=== PATIENT | female | born 1930 | race Caucasian/White ===

== ENCOUNTER 2016-06-23 14:13 | Outpatient (CLI) | payer MEDICARE ==
[~2016-06-23 14:13] MED LIST: ACET325T53 PO; CALCIUM PO; DILT30TA35; DILT60TA35 PO; FURO40TA5 PO; MAGN400O6 PO; METO50TA3 PO; OXYC1TAB8 PO; PRED10TA23 PO; PRED20TA PO; PRED5TAB48 PO; Rivaroxaban PO; THYR30TA2 PO
[2016-06-23 15:05] LABS: CALCIUM, SERUM 8.7 mg/dL (8.5-10.1); CREATININE 1.3 mg/dL (0.6-1.3); POTASSIUM 4.4 mmol/L (3.5-5.1)
== END 2016-06-23 23:59 | disposition home or self-care (01) ==
LOC: LAB 14:13
PROVIDERS: ATTEND Surgery Vascular Surgery
DX: I48.91 Unspecified atrial fibrillation (principal)
CPT/HCPCS: 36415; 80048-TC

== ENCOUNTER 2016-11-14 23:45 | Inpatient (IN) | payer MEDICARE ==
[~2016-11-14] VITALS: Ht 165.1 cm; Wt 83.9 kg
[2016-11-15] VITALS (23 sets, daily range): BP systolic 117–194; BP diastolic 60–125
--- NOTE | 2016-11-15 | NUR ---
86 yo female bb ra from home. pt is alert x 3, c/o bilat lower extremity numbness x 30 min detective captain. pt assisted to er bed, skin warm and dry, rr even and unlabored. positive pedal pulses bilat. awaiting orders from provider, will continue to monitor
--- NOTE | 2016-11-15 00:12 | NUR ---
20g left fa iv started, blood sample obtianed and sent to lab
[2016-11-15 00:20] LABS: BASOPHILS % (AUTO) 0.6 % (0.0-2.0); EOSINOPHILS # (AUTO) 0.3 /CMM (0.0-0.7); HEMATOCRIT 41 % (33-45); HEMOGLOBIN 13.5 g/dL (11.5-14.8); LYMPHOCYTES # (AUTO) 1.1 /CMM (0.8-4.8); LYMPHOCYTES % (AUTO) 14.8 % (20.0-44.0); MEAN CORPUSCULAR HEMOGLOBIN 31 PG (26.0-33.0); MEAN CORPUSCULAR HGB CONC 33 g/dl (31.0-36.0); MEAN CORPUSCULAR VOLUME 92 fL (82-100); MONOCYTES # (AUTO) 0.6 /CMM (0.1-1.30); MONOCYTES % (AUTO) 7.5 % (2.0-12.0); NEUTROPHILS # (AUTO) 5.6 /CMM (1.8-8.9); NEUTROPHILS % (AUTO) 73.1 % (43.0-81.0); PLATELET COUNT (AUTO) 180 /CMM (150-450); WHITE BLOOD COUNT (AUTO) 7.7 K/uL (4.3-11.0)
[2016-11-15 00:33] LABS: CALCIUM, SERUM 9.4 mg/dL (8.5-10.1); CARBON DIOXIDE 27 mmol/L (21-32); CHLORIDE 104 mmol/L (98-107); CREATININE 1.1 mg/dL (0.6-1.3); GLUCOSE 99 mg/dL (74-106); INR 0.97 (0.87-1.13); POTASSIUM 4.3 mmol/L (3.5-5.1); PROTHROMBIN TIME 10.4 SECS (9.5-12.7); SODIUM SERUM 140 mmol/L (136-145); UREA NITROGEN, BLOOD 29 mg/dL (7-18)
[2016-11-15 00:39] LABS: TROPONIN I < 0.017 ng/mL (0.00-0.056)
[2016-11-15 00:44] LABS: ALANINE AMINOTRANSFERASE 18 U/L (12-78); ALBUMIN 4.1 g/dL (3.4-5.0); ALKALINE PHOSPHATASE 55 U/L (46-116); ASPARTATE AMINOTRANSFERASE 12 U/L (15-37); B-TYPE NATRIURETIC PEPTIDE 656 PG/ML (0-125); BILIRUBIN,DIRECT 0.2 mg/dL (0.0-0.2); BILIRUBIN,TOTAL 1.6 mg/dL (0.2-1.0); TOTAL PROTEIN, SERUM 7.4 g/dL (6.4-8.2)
[2016-11-15] MEDS ORDERED: THYR15TA PO (00:58)
[2016-11-15] MEDS ORDERED: [UNRECOGNIZED DRUG - OTHER] PO (00:58)
[2016-11-15] MEDS ORDERED: CARV25TA PO (00:58)
[2016-11-15] MEDS ORDERED: DILT120C2 PO (00:58)
--- NOTE | 2016-11-15 02:22 | NUR ---
echocardiography radiology technologist at bed side for arterial and venous douplex of the lower legs
[2016-11-15 02:38] LABS: APPEARANCE,URINE SL CLOUDY (CLEAR); BILIRUBIN,URINE NEGATIVE (NEGATIVE); BLOOD, URINE TRACE Ery/uL (NEGATIVE); COLOR,URINE YELLOW (YELLOW); KETONES,URINE TRACE (NEGATIVE); LEUKOCYTE ESTERASE ,URINE 2+ (NEGATIVE); NITRITE, URINE POSITIVE (NEGATIVE); PROTEIN,URINE 1+ mg/dl (NEGATIVE); UGLUCOSE NEGATIVE (NEGATIVE); UROBILINOGEN,URINE 0.2 EU/dL (0.2)
[2016-11-15 02:42] LABS: BACTERIA,URINE Few /HPF (None Seen); SQUAMOUS EPITHELIAL CELL,UR Few /HPF (None Seen)
--- NOTE | 2016-11-15 03:02 | NUR ---
pt resting in er bed, nad noted awaiting orders from provider
--- NOTE | 2016-11-15 03:33 | NUR ---
noticed left sided facial droop, and slurred speech. MD José notified
--- NOTE | 2016-11-15 03:34 | NUR ---
CODE STROKE CALLED. SPOKE TO
--- NOTE | 2016-11-15 03:34 | NUR ---
started heparin drip as ordered.
--- NOTE | 2016-11-15 03:35 | NUR ---
transported pt to ct via rney with radiology team
--- NOTE | 2016-11-15 03:42 | NUR ---
TELESTROKE DR. STOVALL FROM [facility] TALKING TO DR. PALMER.
--- NOTE | 2016-11-15 04:25 | NUR ---
CALLED [facility] AND SPOKE TO SG ABOUT PT'S RETURN FROM CT SCAN
--- NOTE | 2016-11-15 04:28 | NUR ---
[facility]
--- NOTE | 2016-11-15 04:33 | NUR ---
MD Ankit Fuentes is speaking with patient via tele stroke computer
--- NOTE | 2016-11-15 04:37 | NUR ---
Per MD Ankit Fuentes, pt is not a canidate for TPA, will continue to monitor
--- NOTE | 2016-11-15 05:16 | NUR ---
Stas Michel MD, Vascular Surgery is at bed side for eval
--- NOTE | 2016-11-15 05:35 | NUR ---
pt transported to ICU bed via gurney by emt and RN
--- NOTE | 2016-11-15 07:00 | NUR ---
icu initial note received pt in bed, awake, a/o x 3, able to make needs known, able to follow commands, pt is on bedside monitor showing sb 60's, bmp, no c/o of chest pain or discomfort at this time, pt is currently npo at this time for upcoming procedure, pt has r hand #22g,sl, l hand #20g, running d51/2 ns @ 70ml/hr, lac #18g, running heparin @ 1500 units/hr, c/d/i/patent, flushing well, no s/s of infection/ infiltration noted at this time, pt is noted with no pedal pulse on r foot, cold to touch, pt complains of pain when touching or moving leg, all safety measures in place at all times, call light within easy reach, will monitor pt closely for changes
[2016-11-15 08:28] LABS: MAGNESIUM 2.6 mg/dL (1.8-2.4); PHOSPHORUS 3.8 mg/dL (2.5-4.9)
[2016-11-15 08:41] LABS: THYROID STIMULATING HORMONE 82.634 uIU/mL (0.358-3.74)
--- NOTE | 2016-11-15 09:52 | NUR ---
icu note pt signed blood consent and procedure consent for r leg thrombectomy, possible bypass, fasciotomy, possible angiogram, all questions and concerns answered, pt is currently npo
--- NOTE | 2016-11-15 09:53 | NUR ---
icu note dr. perea, anesthesiologist, at bedside, explained risks and benefits of anesthesia, all questions and concerns answered, pt signed consent for anesthesia.
--- NOTE | 2016-11-15 11:50 | NUR ---
icu note heparin drip on hold, pt 160 seconds, , aware, all new orders ack
--- NOTE | 2016-11-15 11:55 | NUR ---
icu note lab called pt is 160, informed 's office, unable to reach him d/t major operation, paged
--- NOTE | 2016-11-15 14:00 | NUR ---
icu note family at bedside, updated, all questions and concerns answered
--- NOTE | 2016-11-15 15:00 | NUR ---
icu note dr. holman called, surgery is cancelled, procedure is rescheduled for tomorrow 11/17/16
--- NOTE | 2016-11-15 15:00 | NUR ---
ICU NOTE PER. DR. VELIZ, RESTART HEPARIN AFTER 1600 APTT LEVEL, START AT 1300 UNITS/HR, THEN CHECK APTT Q6H, ADJUST PER PROTOCOL
--- NOTE | 2016-11-15 16:30 | NUR ---
icu note aptt 31, per dr. holman restarted heparin @1300 units/hr, recheck aptt in 6hrs, follow heparin protocol and
--- NOTE | 2016-11-15 18:20 | NUR ---
icu note pm care given, pt kept clean and dry, all orders carried out. family updated and at bedside
--- NOTE | 2016-11-15 19:30 | NUR ---
PLASTICS SPREADING MACHINE OPERATOR INITIAL NOTE RECEIVED REPORT FROM WILFRED MARTINEZ. PT IN BED.FAMILY AT BEDSIDE. PT IS A/A/O X3. LUNG SOUNDS DIMINISHED. BOWEL SOUNDS PRESENT. INCONTINENT WITH DIAPER INTACT. PT ABLE TO MOVE ALL EXTREMITIES. RIGHT LEG COOL, X MARKED ON FOOT FOR PULSE SOUNDS. PT ABLE TO LEGS AND FEET. PT IS EXPERIENCING PAIN IN LOWER EXTREMITIES. BP ELEVATED. WILL REVIEW PAIN MEDICATIONS. BED IN LOW LOCKED POSITION. CALL LIGHT WITHIN REACH. WILL CONTINUE TO MONITOR.
[2016-11-16] VITALS (34 sets, daily range): BP systolic 104–182; BP diastolic 56–117
--- NOTE | 2016-11-16 00:07 | NUR ---
STRUCTURAL STEEL EQUIPMENT ERECTOR CRITICAL VALUE 85. HEPARIN PROTOCOL FOLLOWED. DECREASED HEPARIN BY 2 UNITS. HEPARIN DOSE 1150 UNITS
[2016-11-16 04:51] LABS: BASOPHILS % (AUTO) 0.3 % (0.0-2.0); EOSINOPHILS # (AUTO) 0.1 /CMM (0.0-0.7); EOSINOPHILS % (AUTO) 1.2 % (0.0-6.0); HEMATOCRIT 31 % (33-45); HEMOGLOBIN 9.6 g/dL (11.5-14.8); LYMPHOCYTES # (AUTO) 0.8 /CMM (0.8-4.8); LYMPHOCYTES % (AUTO) 10.3 % (20.0-44.0); MEAN CORPUSCULAR HEMOGLOBIN 31 PG (26.0-33.0); MEAN CORPUSCULAR HGB CONC 31 g/dl (31.0-36.0); MEAN CORPUSCULAR VOLUME 101 fL (82-100); MONOCYTES # (AUTO) 0.7 /CMM (0.1-1.30); MONOCYTES % (AUTO) 9.1 % (2.0-12.0); NEUTROPHILS # (AUTO) 5.8 /CMM (1.8-8.9); NEUTROPHILS % (AUTO) 79.1 % (43.0-81.0); PLATELET COUNT (AUTO) 118 /CMM (150-450); RDW COEFFICIENT OF VARIATION 17.8 (11.5-15.0); RED BLOOD CELL COUNT(AUTO) 3.06 MIL/uL (4.0-5.2); WHITE BLOOD COUNT (AUTO) 7.4 K/uL (4.3-11.0)
--- NOTE | 2016-11-16 05:30 | NUR ---
SALES DRIVER LAB CALLED WITH CRITICAL VALUE. PTT 106. WILL FOLLOW PROTOCOL. HOLD HEPARIN FOR ONE HOUR AND RESTART AT 0630 BUT WILL DECREASE HEPARIN BY 3 UNITS. WILL CONTINUE TO MONITOR.
[2016-11-16 06:16] LABS: CALCIUM, SERUM 8.4 mg/dL (8.5-10.1); CARBON DIOXIDE 30 mmol/L (21-32); CHLORIDE 106 mmol/L (98-107); CREATININE 1.2 mg/dL (0.6-1.3); GLUCOSE 107 mg/dL (74-106); POTASSIUM 4.1 mmol/L (3.5-5.1); SODIUM SERUM 141 mmol/L (136-145); UREA NITROGEN, BLOOD 21 mg/dL (7-18)
[2016-11-16 06:23] LABS: ALANINE AMINOTRANSFERASE 17 U/L (12-78); ALBUMIN 3.4 g/dL (3.4-5.0); ALKALINE PHOSPHATASE 50 U/L (46-116); ASPARTATE AMINOTRANSFERASE 11 U/L (15-37); BILIRUBIN,TOTAL 1.1 mg/dL (0.2-1.0); MAGNESIUM 2.4 mg/dL (1.8-2.4); PHOSPHORUS 3.9 mg/dL (2.5-4.9); TOTAL PROTEIN, SERUM 6.6 g/dL (6.4-8.2)
--- NOTE | 2016-11-16 06:30 | NUR ---
PORCELAIN SLUSHER RCD PT FROM ER AT 0540; RCD REPORT AT 0630 W/ADMITTING ORDERS. DX RIGHT COMMON ILIAC ARTERY OCCLUSION. PT SEEN BY DR VELIZ SCHEDULED FOR SURGERY AT 1600 TODAY. PT IS A/O x4; REQUESTING PAIN MEDICATION FOR BL FEET PAIN 09/[address] MEREDITH GIVE MORPHINE 2 MG IV NOW; UNABLE TO OBTAIN BROUGHT BY ER NURSE. PT WITH HEPARIN DRIP AT 1500 UNITS/HR. PER ER REPORT PT WAS A CODE STROKE HOWEVER PT DID NOT HAVE A STROKE RATHER A TIA. PT REQUESTING FOOD SHE HAS NOT EATEN IN 24 HRS EXPLAINED TO PT SHE IS NPO FOR SURGERY. CONTINUE TO MONITOR.
[2016-11-16 06:31] LABS: CHOLESTEROL 206 mg/dL (<200); TRIGLYCERIDES 78 mg/dL (30-150)
[2016-11-16 06:32] LABS: HDL CHOLESTEROL 50 mg/dL (40-60); LDL 142 mg/dL (0-99); THYROID STIMULATING HORMONE 22.663 uIU/mL (0.358-3.74)
--- NOTE | 2016-11-16 07:00 | NUR ---
CONSTRUCTION PERSON END NOTE REPORT TO BE ENDORSED TO ADONAY MARTINEZ FOR PARAG. PT IN BED, ASLEEP. STABLE AT THIS TIME. SCHEDULED FOR SURGERY AT [address] VELIZ.
--- NOTE | 2016-11-16 07:05 | NUR ---
MOVE COORDINATOR- INITIAL NOTE RECEIVED PT A/O X4, RESTING COMFORTABLY IN BED. ON 2L NC, RESPIRATIONS EVEN AND UNLABORED, NO SOB OR DISTRESS PRESENT. BEDSIDE MONITOR REVEALS SINUS JOSE MARIA, HR= 55. THREE IVS PRESENT: 1) LEFT HAND 20G, 2) LAC 18G, AND 3) RIGHT HAND 22G. PT CURRENTLY RUNNING HEPARIN GTT AT 900 UNITS/HR AND D5 1/2NS @ 70 ML/HR. NEXT PTT SCHEDULED AT 1230. SAFETY MEASURES TAKEN: BED LOCKED AND IN LOW POSITION, SIDE RAILS UP X2, BED ALARM ON AND CALL LIGHT WITHIN REACH, WILL CONTINUE TO MONITOR.
--- NOTE | 2016-11-16 10:00 | NUR ---
SIGN DESIGNER- PT OFF TO SURGERY FOR RIGHT COMMON ILIAC ARTERY THROMBECTOMY. FAMILY AT BEDSIDE.
--- NOTE | 2016-11-16 10:30 | NUR ---
STRIPPING SHOVEL OILER- DR. WATSON AT BEDSIDE. INFORMED MD PT LEFT FOR SURGERY AT 10 AM. ASKED MD IF HE WOULD LIKE TO ORDER ANY ASPIRIN OR LIPID MEDICATIONS FOR PT SINCE SHE WAS ADMITTED FOR TIA. PER MD, HE WILL SEE EVALUATE PT AFTER SURGERY AND MAKE A DECISION.
--- NOTE | 2016-11-16 14:15 | NUR ---
RURAL CARRIER ASSOCIATE- PT RETURNED FROM SURGERY. PLACED ON 3L NC, SATURATING AT 95%. PT ABLE TO WIGGLES TOES AND MOVE FEET. PT PRESENTS WITH NASCIMENTO CATHETER AND DAVEY DRAIN ON RIGHT GROIN. DENIES PAIN OR DISCOMFORT. WILL CONTINUE TO MONITOR.
--- NOTE | 2016-11-16 16:00 | NUR ---
SENIOR TERADATA DEVELOPER- DR. WATSON AT BEDSIDE EVALUATING PT. INFORMED PT HE WILL TALK TO DR. VELIZ IN REGARDS TO RE-STARTING PT ON ANTICOAGULANTS. WILL CONTINUE TO MONITOR.
--- NOTE | 2016-11-16 16:30 | NUR ---
HEAVY EQUIPMENT PLUMBING SUPERVISOR- SPOKE WITH DR. VELIZ. CONFIRMED WHETHER TO CONTINUE HEPARIN GTT. PER MD, YES, PT STILL NEEDS TO BE ON HEPARIN GTT. PTT RESULT IS 55. HEPARIN GTT WILL CONTINUE AT 900 UNITS/HOUR. ORDER PLACED FOR NEXT PTT TOMORROW AM. WILL CONTINUE TO MONITOR.
--- NOTE | 2016-11-16 19:30 | NUR ---
ELECTRONIC ENGINEERING DRAFTSPERSON INITIAL NOTE RECEIVED REPORT FROM ADONAY MARTINEZ. PT IN BED A/A/O X4. LUNG SOUNDS CLEAR. BOWEL SOUNDS PRESENT. DAVEY DRAIN INTACT ON RIGHT GROIN AREA, DRESSING DRY AND INTACT. NASCIMENTO INTACT AND DRAINING URINE. IV PATENT AND INTACT. BED IN LOW LOCKED POSITION. CALL LIGHT WITHIN REACH. WILL CONTINUE TO MONITOR.
--- NOTE | 2016-11-16 19:30 | NUR ---
INTERIOR DESIGN CONSULTANT INITIAL NOTE RECEIVED REPORT FROM WILFRED MARTINEZ. PT IN BED.FAMILY AT BEDSIDE. PT IS A/A/O X3. LUNG SOUNDS DIMINISHED. BOWEL SOUNDS PRESENT. INCONTINENT WITH DIAPER INTACT. PT ABLE TO MOVE ALL EXTREMITIES. RIGHT LEG COOL, X MARKED ON FOOT FOR PULSE SOUNDS. PT ABLE TO LEGS AND FEET. PT IS EXPERIENCING PAIN IN LOWER EXTREMITIES. BP ELEVATED. WILL REVIEW PAIN MEDICATIONS. BED IN LOW LOCKED POSITION. CALL LIGHT WITHIN REACH. WILL CONTINUE TO MONITOR. Addendum: 11/17/16 at 0344 by JAGDEEP PEACOCK RN NOTE FOR 11/15/16 LATE ENTRY
[2016-11-17] VITALS (31 sets, daily range): BP systolic 112–171; BP diastolic 46–114
--- NOTE | 2016-11-17 | NUR ---
PRODUCT MANAGER E COMMERCE PT IN BED RESTING COMFORTABLY. NO DISTRESS NOTED. BP STABLE. REPOSITIONED FOR COMFORT. WAR, BLANKET PROVIDED. WILL CONTINUE TO MONITOR.
--- NOTE | 2016-11-17 03:26 | NUR ---
AIR BOX TESTER PT BLOOD PRESSURE HIGH 169/95, VASOTEC GIVEN. WILL CONTINUE TO MONITOR.
[2016-11-17 04:59] LABS: BASOPHILS % (AUTO) 0.1 % (0.0-2.0); EOSINOPHILS % (AUTO) 0.1 % (0.0-6.0); HEMATOCRIT 38 % (33-45); HEMOGLOBIN 12.7 g/dL (11.5-14.8); LYMPHOCYTES # (AUTO) 0.9 /CMM (0.8-4.8); LYMPHOCYTES % (AUTO) 7.9 % (20.0-44.0); MEAN CORPUSCULAR HEMOGLOBIN 31 PG (26.0-33.0); MEAN CORPUSCULAR HGB CONC 34 g/dl (31.0-36.0); MEAN CORPUSCULAR VOLUME 93 fL (82-100); MONOCYTES # (AUTO) 0.9 /CMM (0.1-1.30); MONOCYTES % (AUTO) 7.9 % (2.0-12.0); NEUTROPHILS # (AUTO) 9.9 /CMM (1.8-8.9); PLATELET COUNT (AUTO) 175 /CMM (150-450); RDW COEFFICIENT OF VARIATION 16.2 (11.5-15.0); RED BLOOD CELL COUNT(AUTO) 4.07 MIL/uL (4.0-5.2); WHITE BLOOD COUNT (AUTO) 11.8 K/uL (4.3-11.0)
[2016-11-17 05:13] LABS: ALANINE AMINOTRANSFERASE 14 U/L (12-78); ALBUMIN 3.1 g/dL (3.4-5.0); ALKALINE PHOSPHATASE 48 U/L (46-116); ASPARTATE AMINOTRANSFERASE 11 U/L (15-37); BILIRUBIN,TOTAL 0.7 mg/dL (0.2-1.0); CALCIUM, SERUM 8.3 mg/dL (8.5-10.1); CARBON DIOXIDE 28 mmol/L (21-32); CHLORIDE 107 mmol/L (98-107); CREATININE 1.2 mg/dL (0.6-1.3); GLUCOSE 124 mg/dL (74-106); MAGNESIUM 2.2 mg/dL (1.8-2.4); POTASSIUM 3.6 mmol/L (3.5-5.1); SODIUM SERUM 141 mmol/L (136-145); TOTAL PROTEIN, SERUM 6.4 g/dL (6.4-8.2); UREA NITROGEN, BLOOD 15 mg/dL (7-18)
[2016-11-17 05:30] LABS: FERRITIN 139 ng/mL (8-388)
--- NOTE | 2016-11-17 05:45 | NUR ---
MANAGER MEMBERSHIP PTT LEVEL 64. WILL FOLLOW PROTOCOL. NO CHANGES. WILL CONTINUE TO MONITOR.
[2016-11-17 06:10] LABS: IRON, SERUM 44 ug/dl (50-175); TOTAL IRON BINDING CAPACITY 265 ug/dl (250-450)
--- NOTE | 2016-11-17 09:00 | NUR ---
PT AOX4 VSS, DENIES PAIN. INCISION INTACT. NO BLEEDING NOTED. DAVEY INTACT < 5LM DRAINAGE NOTED. Addendum: 11/17/16 at 1530 by SITA FERNANDEZ RN HEPARIN AT 900UITS/HR. NEXT PTT 11/18 IN AM
--- NOTE | 2016-11-17 10:00 | NUR ---
PT ASSISTED WITH AM HYGIENE AND BREAKFAST. INTAKE 100%
--- NOTE | 2016-11-17 15:17 | NUR ---
MS RN NOTES RECEIVED PATIENT A/OX4 DENIES SOB, DIFFICULTY BREATHING OR PAIN AT THIS TIME. VS STABLE AND HEPARIN DRIP RUNNING ORDERED NO COMPLICATIONS NOTED. DRESSING TO RIGHT GROIN INTACT DRAINAGE NOTED SOILED ON MEPILEX HOWEVER NO DRAINAGE OUTSIDE OF DRESSING. AWAITING MD VELIZ ORDERS FOR DRESSING CHANGE. J BRAGA DRAIN INTACT AND CONNECTED. PATIENT STATES NO NEEDS AT THIS TIME AND ALL NEEDS IN REACH. BED LOWERED AND LOCKED, RAILS UPX3 FOR SAFETY AND WILL ROUND Q2H OR LESS PER NEEDS.
--- NOTE | 2016-11-17 15:35 | NUR ---
REPORT TO ALESIA GORDON RN. PT TRANSFERRED BY BED TO ROM 201. BELONGINGS WITH PT. VSS UPON TRANSFER. HEPATIN GTT IN PROGRESS.
--- NOTE | 2016-11-17 19:10 | NUR ---
MS RN CLOSING PATIENT STABLE NO COMPLICATIONS NO CHANGES THROUGHOUT SHIFT. ALL DUE MEDS GIVEN AND ALL NEEDS MET. ALL NEEDS IN REACH, BED LOWERED AND LOCKED, RAILS UPX3 FOR SAFETY AND WILL ENDORSE CARE TO MICHELLE MALDONADO FOR PARAG
--- NOTE | 2016-11-17 19:15 | NUR ---
MS/RN OPENING NOTES PT AWAKE, SITTING UP IN BED. A/OX4, ON ROOM AIR, BREATHING EVEN AND UNLABORED. DENIES SOB OR PAIN AT THIS TIME. NASCIMENTO IN PLACE AND DRAINING WELL. DAVEY DRAIN TO RIGHT HIP NOTED WITH SANGUINOUS OUTPUT. IV TO RIGHT HAND RUNNING IVF HEPARIN ORDERED. IV TO LEFT WRIST PATENT AND INTACT. DRESSING TO BE CHANGED TOMORROW BY MD. BED IN LOW/LOCKED POSITION. CALL LIGHT IN REACH. SIDE RAILS UPX2. WILL CONTINUE TO MONITOR
[2016-11-18 06:37] LABS: CALCIUM, SERUM 8.4 mg/dL (8.5-10.1); CARBON DIOXIDE 24 mmol/L (21-32); CHLORIDE 110 mmol/L (98-107); CREATININE 1.2 mg/dL (0.6-1.3); GLUCOSE 93 mg/dL (74-106); POTASSIUM 3.6 mmol/L (3.5-5.1); SODIUM SERUM 145 mmol/L (136-145); UREA NITROGEN, BLOOD 18 mg/dL (7-18)
[2016-11-18 06:38] LABS: BASOPHILS % (AUTO) 0.3 % (0.0-2.0); EOSINOPHILS # (AUTO) 0.3 /CMM (0.0-0.7); EOSINOPHILS % (AUTO) 2.4 % (0.0-6.0); HEMATOCRIT 39 % (33-45); HEMOGLOBIN 13.1 g/dL (11.5-14.8); LYMPHOCYTES # (AUTO) 1.2 /CMM (0.8-4.8); LYMPHOCYTES % (AUTO) 11.2 % (20.0-44.0); MEAN CORPUSCULAR HEMOGLOBIN 31 PG (26.0-33.0); MEAN CORPUSCULAR HGB CONC 33 g/dl (31.0-36.0); MEAN CORPUSCULAR VOLUME 94 fL (82-100); MONOCYTES # (AUTO) 1.3 /CMM (0.1-1.30); MONOCYTES % (AUTO) 11.7 % (2.0-12.0); NEUTROPHILS % (AUTO) 74.4 % (43.0-81.0); PLATELET COUNT (AUTO) 169 /CMM (150-450); WHITE BLOOD COUNT (AUTO) 10.8 K/uL (4.3-11.0)
--- NOTE | 2016-11-18 07:30 | NUR ---
MS/RN CLOSING NOTES PT AWAKE, SITTING UP IN BED. A/OX4. ON RA, BREATHING EVEN AND UNLABORED. DENIES SOB OR PAIN AT THIS TIME. NASCIMENTO IN PLACE AND DRAINING WELL. TO BE D/C'D TODAY. DAVEY DRAIN TO RIGHT GROIN INTACT, DRAINING SANGUINOUS OUTPUT. DRESSING C/D/I. IV TO RIGHT HAND RUNNING HEPARIN ORDERED. IV TO LEFT WRIST PATENT AND INTACT. MD TO CHANGE DRESSING TODAY AND POSSIBLY CHANGE HEPARIN DRIP TO PO ELIQUIS OR XARELTO. MADE PT COMFORTABLE DURING SHIFT. ALL NEEDS MET AND ATTENDED. ASSISTED PT WITH TURNING/REPOSITIONING Q2H. HEELS OFFLOADED. BED IN LOW/LOCKED POSITION WITH CALL LIGHT IN REACH. SIDE RAILS UPX2. ENDORSED TO AM SHIFT PARAG.
[2016-11-18 08:00] VITALS: BP 149/94
--- NOTE | 2016-11-18 08:00 | NUR ---
MS/RN PTT PTT level this morning 49 - per hospital protocol, no changes to infusion rate. PTT ordered for tomorrow.
--- NOTE | 2016-11-18 09:00 | NUR ---
MS/RN Morning medications Morning medications administered as ordered.
--- NOTE | 2016-11-18 10:00 | NUR ---
MS/RN S/B PT/OT Out of bed to chair for short period of time.
--- NOTE | 2016-11-18 12:36 | NUR ---
MS/RN Synthroid Per Dr Granger, synthroid dose to be changedfrom IV to oral.
[2016-11-18 16:00] VITALS: BP 124/82
--- NOTE | 2016-11-18 18:29 | NUR ---
MS/RN End note No changes in heparin infusion rate, (900 units/18ml/hr) Awaiting Dr Michel to review patient, change dressing, remove drain and discontinue heparin infusion. All other needs attended, kept clean and comfortable. Will continue to monitor and endorse to 911 emergency dispatcher.
--- NOTE | 2016-11-18 19:10 | NUR ---
MS/RN OPENING NOTES PT RECEIVED AWAKE, HOB ELEVATED. SON AT BEDSIDE. ON ROOM AIR, BREATHING EVEN AND UNLABORED. DENIES SOB OR PAIN. HEPARIN INFUSION TO RIGHT HAND RUNNING AT 900UNITS/HR (18ML/HR) ORDERED. PTT THIS AM=49, NO CHANGES TO INFUSION RATE. NO ACTIVE SIGNS OF BLEEDING NOTED. IV TO LEFT WRIST PATENT AND INTACT. DAVEY DRAIN TO RIGHT GROIN DRAINING SANGUINOUS FLUID. DRESSING IS C/D/I. AWAITING DR. VELIZ TO PERFORM DRESSING CHANGE AND D/C HEPARIN DRIP. BED IN LOW/LOCKED POSITION, CALL LIGHT IN REACH. SIDE RAILS UPX2. WILL CONTINUE TO MONITOR
[2016-11-18 20:00] VITALS: BP 119/85
--- NOTE | 2016-11-18 20:43 | NUR ---
MS/RN NOTES NEW BAG OF HEPARIN AND IV TUBING HUNG. PTT=49 THIS AM. PER HEPARIN INFUSION ORDERS, NO CHANGE IN RATE. CONTINUED AT 900UNITS/HR (18ML/HR).
[2016-11-19 06:40] LABS: EOSINOPHILS # (AUTO) 0.3 /CMM (0.0-0.7); HEMATOCRIT 39 % (33-45); HEMOGLOBIN 12.9 g/dL (11.5-14.8); INR 0.97 (0.87-1.13); LYMPHOCYTES # (AUTO) 1.4 /CMM (0.8-4.8); LYMPHOCYTES % (AUTO) 13.6 % (20.0-44.0); MEAN CORPUSCULAR HEMOGLOBIN 32 PG (26.0-33.0); MEAN CORPUSCULAR HGB CONC 34 g/dl (31.0-36.0); MEAN CORPUSCULAR VOLUME 94 fL (82-100); MONOCYTES # (AUTO) 1.3 /CMM (0.1-1.30); MONOCYTES % (AUTO) 12.1 % (2.0-12.0); NEUTROPHILS # (AUTO) 7.5 /CMM (1.8-8.9); NEUTROPHILS % (AUTO) 71.3 % (43.0-81.0); PLATELET COUNT (AUTO) 173 /CMM (150-450); PROTHROMBIN TIME 10.1 SECS (9.5-12.7); RDW COEFFICIENT OF VARIATION 16.1 (11.5-15.0); RED BLOOD CELL COUNT(AUTO) 4.11 MIL/uL (4.0-5.2); WHITE BLOOD COUNT (AUTO) 10.5 K/uL (4.3-11.0)
[2016-11-19 07:08] LABS: CALCIUM, SERUM 8.2 mg/dL (8.5-10.1); CARBON DIOXIDE 23 mmol/L (21-32); CHLORIDE 106 mmol/L (98-107); CREATININE 1.1 mg/dL (0.6-1.3); GLUCOSE 95 mg/dL (74-106); POTASSIUM 3.5 mmol/L (3.5-5.1); SODIUM SERUM 141 mmol/L (136-145); UREA NITROGEN, BLOOD 18 mg/dL (7-18)
--- NOTE | 2016-11-19 07:09 | NUR ---
MS/RN CLOSING NOTES PT AWAKE, A/OX3. ON ROOM AIR, BREATHING EVEN AND UNLABORED. DENIES SOB OR PAIN. DR. VELIZ AT BEDSIDE TO REMOVE DAVEY DRAIN. NEW ORDERS TO D/C HEPARIN, START PO XARELTO 2OMG DAILY AND DAILY DRESSING CHANGE 4X4 WITH PAPER TAPE. ORDERS NOTED AND ENTERED IN THE COMPUTER. DENIES PAIN. IV TO RIGHT HAND AND LEFT WRIST PATENT AND INTACT. MADE PT COMFORTABLE DURING SHIFT. ALL NEEDS MET AND ATTENDED. ASSISTED WITH TURNING/REPOSITIONING Q2H, HEELS OFFLOADED. BED IN LOW/LOCKED POSITION, CALL LIGHT IN REACH. SIDE RAILS UPX2. ENDORSED TO AM SHIFT PARAG.
--- NOTE | 2016-11-19 07:30 | NUR ---
MS/RN Patient received Patient received from licensed journeyman electrician. Denies pain, no apparent distress at this time. Call light within reach, will continue to monitor.
[2016-11-19 08:00] VITALS: BP 130/88
--- NOTE | 2016-11-19 09:00 | NUR ---
MS/RN Medications Morning medications given as ordered.
--- NOTE | 2016-11-19 10:45 | NUR ---
MS/RN PT Seen by PT - able to ambulate out to nursing station using FWW and standby assist.
--- NOTE | 2016-11-19 13:48 | NUR ---
MS/traverse rod assembler redressed Wound to right groin redressed as soiled from drain removal earlier today.
[2016-11-19 14:25] LABS: *CARD ANTI-CARDIOLIPIN AB IgA <9 APL U/mL (0-11); *CARD ANTI-CARDIOLIPIN AB IgG <9 GPL U/mL (0-14); *CARD ANTI-CARDIOLIPIN AB IgM <9 MPL U/mL (0-12)
--- NOTE | 2016-11-19 15:01 | NUR ---
MS/RN S/B Dr Granger Seen by Dr Granger - patient to be discharged to [facility] unit tomorrow.
[2016-11-19 16:00] VITALS: BP 130/77
--- NOTE | 2016-11-19 18:06 | NUR ---
MS/RN End note Patient remains in stable condition throughout shift. Puncture site to right groin clean and dry. Denies pain or discomfort. Voiding without discomfort since osuna catheter removal, no BM since sirgery. Warm prune juice given. Will continue to monitor and endorse to manager shift.
--- NOTE | 2016-11-19 19:30 | NUR ---
MS RN OPENING NOTES: PATIENT IN BED, AOX4, ON ROOM AIR, BREATHING EVEN AND UNLABORED. APPEARS CALM AND IN NO DISTRESS. DENIES PAIN AT THIS TIME. BREATH SOUNDS CLEAR TO AUSCULTATION. PIV OVER R HAND G22 INTACT AND PATENT TO FLUSH. NOTED R LOWER ABDOMEN INCISION EXTENDING TO GROIN AREA, CLEAN AND WITHOUT SIGNS OF BLEEDING, SWELLING, PURULENT DISCHARGE, SECURED WITH 14 MARINA. R THIGH INCISION WITH CLEAN, INTACT DRESSING SECURED WITH TAPE. NO BLEEDING, SWELLING OR PURULENT DISCHARGE NOTED. PROVIDED FOR COMFORT AND SAFETY. BED IN LOWEST AND LOCKED POSITION, SIDERAILS UP X3. WILL CONT TO MONITOR.
[2016-11-19 20:00] VITALS: BP 147/81
--- NOTE | 2016-11-19 20:50 | NUR ---
RN NOTES: SPOKE TO DR GUERA LAMAS PATIENT'S CONSTIPATION, PATIENT IS REQUESTING FOR LAXATIVE. MILK OF MAGNESIA PRN ORDERED. NOTED AND CARRIED OUT.
[2016-11-19 23:12] LABS: *DILUTE PROTHROMBIN TIME (dPT) 47.8 sec (0.0-55.0); *INTERPRETATION Comment: (.); *PTT-LA 50.5 sec (0.0-51.9); *THROMBIN TIME MIX 51.3 sec (0.0-23.0); *dPT CONFIRM RATIO 0.84 Ratio (0.00-1.40); *dRVVT 39.1 sec (0.0-47.0)
--- NOTE | 2016-11-20 06:54 | NUR ---
MS RN CLOSING NOTES: PATIENT IN BED, AOX4, ON ROOM AIR, BREATHING EVEN AND UNLABORED. APPEARS CALM AND IN NO DISTRESS. PIV OVER R HAND G22 INTACT AND PATENT TO FLUSH. NO ACUTE CHANGE IN CONDITION NOTED THROUGH SHIFT. PATIENT STILL UNABLE TO HAVE BM. PROVIDED FOR COMFORT AND SAFETY. BED IN LOWEST AND LOCKED POSITION, SIDERAILS UPX3. WILL ENDORSE TO AM RN FOR PARAG.
--- NOTE | 2016-11-20 07:20 | NUR ---
RN Initial Notes: Patient resting in bed. Patient with non-labored breathing on room air. Patient denies pain at the moment. IV site on right hand, gauge 22, patent and intact. Bed in lowest locked position. Call light within reach. Will continue to monitor.
[2016-11-20 08:00] VITALS: BP 151/106
[2016-11-20] MEDS ORDERED: Rivaroxaban PO (10:35)
[2016-11-20] MEDS ORDERED: THYR30TA2 PO (10:36)
--- NOTE | 2016-11-20 10:45 | NUR ---
RN Notes: Dr. Granger ordered colace 100 mg, BID, starting now
--- NOTE | 2016-11-20 12:30 | NUR ---
RN Notes: DR. Granger ordered a fleet enema.
[2016-11-20 16:00] VITALS: BP 157/100
--- NOTE | 2016-11-20 19:15 | NUR ---
RN Closing Notes: Patient resting in bed. Patient with non-labored breathing on room air. Patient given Tylenol suppository for mild pain. Patient states feeling better. IV site on right hand, gauge 22, patent and intact. Bed in lowest locked position. Call light within reach. Patient had a bowel movement earlier in the day. Bowel movement was semi liquid with formed stool. Report given to MICHELLE Blackburn at [facility]. Son, Reed, aware of patient's discharge plan. Skin pictures in chart. During shift, patient kept clean and dry. Patient turned and repositioned every 2 hours. Will endorse to next shift.
[2016-11-20 19:35] VITALS: BP 139/101
--- NOTE | 2016-11-20 19:52 | NUR ---
REACTOR SERVICE OPERATOR NOTES: DRYER AND WASHER MECHANIC CAME TO GRAPHITE GRINDER PATIENT. VS CHECKED, DISCHARGE CARE DONE. PATIENT STILL COMPLAINING OF MILD PAIN OVER RECTAL AREA. TYLENOL SUPPOSITORY GIVEN AT 1900 BY ABNER MARTINEZ. NEW VS REPORTED TO MICHELLE ALATORRE AT [facility] [place]. PATIENT WAS TRANSFERRED OUT OF [facility] VIA GURNEY IN STABLE CONDITION. Addendum: 11/20/16 at 4 by ABNER LEÓN RN ADDITIONAL NOTES: STROKE SURVEY COMPLETED AND FILED IN CHART.
== END 2016-11-20 19:35 | DRG 253 ==
LOC: ER 23:46 → ICU 11-15 03:19 → MEDSG2 11-17 15:44
PROVIDERS: ADMIT Internal Medicine; ATTEND Internal Medicine
PROC: 04UK07Z Supplement Right Femoral Artery with Autologous Tissue Substitute, Open Approach (ICD-10-PCS; 2016-11-16)
PROC: 06BP0ZZ Excision of Right Saphenous Vein, Open Approach (ICD-10-PCS; 2016-11-16)
PROC: 04CK0ZZ Extirpation of Matter from Right Femoral Artery, Open Approach (ICD-10-PCS; principal; 2016-11-16 11:37)
DX: I74.5 Embolism and thrombosis of iliac artery (principal); D68.59 Other primary thrombophilia; I74.3 Embolism and thrombosis of arteries of the lower extremities; D68.2 Hereditary deficiency of other clotting factors; D69.6 Thrombocytopenia, unspecified; I27.2 Other secondary pulmonary hypertension; G45.9 Transient cerebral ischemic attack, unspecified; N39.0 Urinary tract infection, site not specified; I48.0 Paroxysmal atrial fibrillation; B96.20 Unspecified Escherichia coli [E. coli] as the cause of diseases classified elsewhere; D64.9 Anemia, unspecified; I25.10 Atherosclerotic heart disease of native coronary artery without angina pectoris; E66.9 Obesity, unspecified; E03.9 Hypothyroidism, unspecified; E78.5 Hyperlipidemia, unspecified; I10 Essential (primary) hypertension; Z68.30 Body mass index [BMI] 30.0-30.9, adult; I35.0 Nonrheumatic aortic (valve) stenosis; I73.9 Peripheral vascular disease, unspecified; Z86.718 Personal history of other venous thrombosis and embolism; Z91.19 Patient's noncompliance with other medical treatment and regimen; D18.09 Hemangioma of other sites; Z96.643 Presence of artificial hip joint, bilateral
CPT/HCPCS: 36415; 70450-TC; 70496-TC; 70498-TC; 71010-TC; 75635-TC; 80048-TC; 80053-TC; 80061-TC; 80076-TC; 81000-TC; 82306; 82728-TC; 82746; 82962-TC; 83090; 83540-TC; 83735-TC; 83880; 84100-TC; 84436-TC; 84439-TC; 84443-TC; 84484-TC; 85025-TC; 85610-TC; 85613; 85670; 85705; 85730-TC; 85732; 86147; 86850-TC; 86921-TC; 87081-TC; 87086-TC; 87186-TC; 88302-TC; 88305-TC; 93307-TC; 93880-TC; 93925-TC; 93970-TC; 97116-TC; 97530-TC; A4606; A6209; A6253; A6402; C1757; C1769; J0360; J0690; J0696; J1100; J1170; J1644; J2270; J2405; J2704; J2710; J3490; J7030; J7042; J7050; J7060; Q9967; Z7610

== ENCOUNTER 2017-05-03 14:47 | Outpatient (CLI) | payer MEDICARE, BC ==
[~2017-05-03 14:47] MED LIST changes: -ACET325T53 PO; -CALCIUM PO; +CARV25TA PO; +DILT-1 PO; -DILT30TA35; -DILT60TA35 PO; -FURO40TA5 PO; -MAGN400O6 PO; -METO50TA3 PO; -OXYC1TAB8 PO; -PRED10TA23 PO; -PRED20TA PO; -PRED5TAB48 PO; +[UNRECOGNIZED DRUG - OTHER] PO
[2017-05-03 15:25] LABS: BASOPHILS % (AUTO) 0.3 % (0.0-2.0); EOSINOPHILS # (AUTO) 0.2 /CMM (0.0-0.7); EOSINOPHILS % (AUTO) 3.1 % (0.0-6.0); HEMATOCRIT 42 % (33-45); HEMOGLOBIN 14.2 g/dL (11.5-14.8); LYMPHOCYTES # (AUTO) 1.1 /CMM (0.8-4.8); LYMPHOCYTES % (AUTO) 14.1 % (20.0-44.0); MEAN CORPUSCULAR HEMOGLOBIN 31 PG (26.0-33.0); MEAN CORPUSCULAR HGB CONC 34 g/dl (31.0-36.0); MEAN CORPUSCULAR VOLUME 90 fL (82-100); MONOCYTES # (AUTO) 0.7 /CMM (0.1-1.30); MONOCYTES % (AUTO) 8.9 % (2.0-12.0); NEUTROPHILS # (AUTO) 5.6 /CMM (1.8-8.9); NEUTROPHILS % (AUTO) 73.6 % (43.0-81.0); PLATELET COUNT (AUTO) 211 /CMM (150-450); RDW COEFFICIENT OF VARIATION 16.8 (11.5-15.0); RED BLOOD CELL COUNT(AUTO) 4.64 MIL/uL (4.0-5.2); WHITE BLOOD COUNT (AUTO) 7.6 K/uL (4.3-11.0)
[2017-05-03 15:36] LABS: ALANINE AMINOTRANSFERASE 10 U/L (12-78); ALBUMIN 3.9 g/dL (3.4-5.0); ALKALINE PHOSPHATASE 63 U/L (46-116); ASPARTATE AMINOTRANSFERASE 15 U/L (15-37); BILIRUBIN,TOTAL 1.5 mg/dL (0.2-1.0); CALCIUM, SERUM 9.5 mg/dL (8.5-10.1); CARBON DIOXIDE 27 mmol/L (21-32); CHLORIDE 104 mmol/L (98-107); CREATININE 1.4 mg/dL (0.6-1.3); GLUCOSE 94 mg/dL (74-106); SODIUM SERUM 139 mmol/L (136-145); UREA NITROGEN, BLOOD 26 mg/dL (7-18)
[2017-05-03 15:46] LABS: CHOLESTEROL 236 mg/dL (<200); HDL CHOLESTEROL 52 mg/dL (40-60); LDL 169 mg/dL (0-99); THYROID STIMULATING HORMONE 52.861 uIU/mL (0.358-3.74); TRIGLYCERIDES 109 mg/dL (30-150)
== END 2017-05-03 23:59 | disposition home or self-care (01) ==
LOC: LAB 14:47
PROVIDERS: ATTEND Internal Medicine Cardiovascular Disease
DX: I10 Essential (primary) hypertension (principal); I48.91 Unspecified atrial fibrillation; E78.5 Hyperlipidemia, unspecified; R53.83 Other fatigue; R53.81 Other malaise
CPT/HCPCS: 36415; 80053-TC; 80061-TC; 84439-TC; 84443-TC; 85025-TC

== ENCOUNTER 2017-06-06 10:58 | Outpatient (CLI) | payer MEDICARE, BC ==
[2017-06-06 12:44] LABS: BASOPHILS % (AUTO) 0.2 % (0.0-2.0); EOSINOPHILS % (AUTO) 2.4 % (0.0-6.0); HEMATOCRIT 43 % (33-45); HEMOGLOBIN 14.3 g/dL (11.5-14.8); LYMPHOCYTES # (AUTO) 0.9 /CMM (0.8-4.8); LYMPHOCYTES % (AUTO) 12.1 % (20.0-44.0); MEAN CORPUSCULAR HGB CONC 34 g/dl (31.0-36.0); MEAN CORPUSCULAR VOLUME 90 fL (82-100); MONOCYTES # (AUTO) 0.6 /CMM (0.1-1.30); MONOCYTES % (AUTO) 7.4 % (2.0-12.0); NEUTROPHILS # (AUTO) 5.9 /CMM (1.8-8.9); NEUTROPHILS % (AUTO) 77.9 % (43.0-81.0); PLATELET COUNT (AUTO) 239 /CMM (150-450); RDW COEFFICIENT OF VARIATION 17.1 (11.5-15.0); RED BLOOD CELL COUNT(AUTO) 4.78 MIL/uL (4.0-5.2); WHITE BLOOD COUNT (AUTO) 7.6 K/uL (4.3-11.0)
[2017-06-06 13:09] LABS: ALANINE AMINOTRANSFERASE 23 U/L (12-78); ALKALINE PHOSPHATASE 63 U/L (46-116); ASPARTATE AMINOTRANSFERASE 16 U/L (15-37); BILIRUBIN,TOTAL 1.4 mg/dL (0.2-1.0); CALCIUM, SERUM 9.2 mg/dL (8.5-10.1); CARBON DIOXIDE 26 mmol/L (21-32); CHLORIDE 104 mmol/L (98-107); CREATININE 1.3 mg/dL (0.6-1.3); GLUCOSE 88 mg/dL (74-106); POTASSIUM 4.1 mmol/L (3.5-5.1); SODIUM SERUM 141 mmol/L (136-145); TOTAL PROTEIN, SERUM 7.7 g/dL (6.4-8.2); UREA NITROGEN, BLOOD 23 mg/dL (7-18)
[2017-06-06 13:20] LABS: CHOLESTEROL 250 mg/dL (<200); HDL CHOLESTEROL 66 mg/dL (40-60); LDL 176 mg/dL (0-99); THYROID STIMULATING HORMONE 50.833 uIU/mL (0.358-3.74); TRIGLYCERIDES 80 mg/dL (30-150)
== END 2017-06-06 23:59 | disposition home or self-care (01) ==
LOC: CARD 10:58
PROVIDERS: ATTEND Internal Medicine Hematology & Oncology
DX: I73.9 Peripheral vascular disease, unspecified (principal); I82.401 Acute embolism and thrombosis of unspecified deep veins of right lower extremity; E78.5 Hyperlipidemia, unspecified
CPT/HCPCS: 36415; 80053-TC; 80061-TC; 84439-TC; 84443-TC; 85025-TC; 85378-TC; 93926-TC

== ENCOUNTER 2017-07-11 14:15 | Outpatient (CLI) | payer MEDICARE, BC ==
[2017-07-11 15:16] LABS: BASOPHILS # (AUTO) 0.1 /CMM (0.0-0.2); BASOPHILS % (AUTO) 0.7 % (0.0-2.0); EOSINOPHILS % (AUTO) 2.4 % (0.0-6.0); HEMATOCRIT 39 % (33-45); HEMOGLOBIN 12.9 g/dL (11.5-14.8); LYMPHOCYTES % (AUTO) 13.8 % (20.0-44.0); MEAN CORPUSCULAR HGB CONC 34 g/dl (31.0-36.0); MEAN CORPUSCULAR VOLUME 92 fL (82-100); MONOCYTES # (AUTO) 0.7 /CMM (0.1-1.30); MONOCYTES % (AUTO) 8.7 % (2.0-12.0); NEUTROPHILS # (AUTO) 5.6 /CMM (1.8-8.9); NEUTROPHILS % (AUTO) 74.4 % (43.0-81.0); PLATELET COUNT (AUTO) 234 /CMM (150-450); RED BLOOD CELL COUNT(AUTO) 4.17 MIL/uL (4.0-5.2); WHITE BLOOD COUNT (AUTO) 7.5 K/uL (4.3-11.0)
[2017-07-11 15:31] LABS: ALANINE AMINOTRANSFERASE 32 U/L (12-78); ALBUMIN 3.8 g/dL (3.4-5.0); ALKALINE PHOSPHATASE 62 U/L (46-116); ASPARTATE AMINOTRANSFERASE 18 U/L (15-37); BILIRUBIN,TOTAL 1.6 mg/dL (0.2-1.0); CARBON DIOXIDE 24 mmol/L (21-32); CHLORIDE 106 mmol/L (98-107); CREATININE 1.1 mg/dL (0.6-1.3); GLUCOSE 88 mg/dL (74-106); SODIUM SERUM 140 mmol/L (136-145); TOTAL PROTEIN, SERUM 7.4 g/dL (6.4-8.2); UREA NITROGEN, BLOOD 25 mg/dL (7-18)
[2017-07-11 15:41] LABS: THYROID STIMULATING HORMONE 12.197 uIU/mL (0.358-3.74)
== END 2017-07-11 23:59 | disposition home or self-care (01) ==
LOC: LAB 14:15
PROVIDERS: ATTEND Internal Medicine Hematology & Oncology
DX: E03.9 Hypothyroidism, unspecified (principal); I82.409 Acute embolism and thrombosis of unspecified deep veins of unspecified lower extremity
CPT/HCPCS: 36415; 80053-TC; 84439-TC; 84443-TC; 85025-TC; 85378-TC

== ENCOUNTER 2017-10-18 15:33 | Outpatient (CLI) | payer MEDICARE, BC ==
[2017-10-18 17:10] LABS: BASOPHILS % (AUTO) 0.2 % (0.0-2.0); EOSINOPHILS % (AUTO) 2.1 % (0.0-6.0); HEMATOCRIT 43 % (33-45); HEMOGLOBIN 13.9 g/dL (11.5-14.8); LYMPHOCYTES # (AUTO) 0.9 /CMM (0.8-4.8); LYMPHOCYTES % (AUTO) 14.3 % (20.0-44.0); MEAN CORPUSCULAR HEMOGLOBIN 30 PG (26.0-33.0); MEAN CORPUSCULAR HGB CONC 32 g/dl (31.0-36.0); MEAN CORPUSCULAR VOLUME 93 fL (82-100); MONOCYTES # (AUTO) 0.4 /CMM (0.1-1.30); MONOCYTES % (AUTO) 6.6 % (2.0-12.0); NEUTROPHILS # (AUTO) 4.7 /CMM (1.8-8.9); NEUTROPHILS % (AUTO) 76.8 % (43.0-81.0); PLATELET COUNT (AUTO) 222 /CMM (150-450); RDW COEFFICIENT OF VARIATION 16.3 (11.5-15.0); RED BLOOD CELL COUNT(AUTO) 4.67 MIL/uL (4.0-5.2); WHITE BLOOD COUNT (AUTO) 6.1 K/uL (4.3-11.0)
[2017-10-18 17:26] LABS: ALANINE AMINOTRANSFERASE 12 U/L (12-78); ALBUMIN 3.8 g/dL (3.4-5.0); ALKALINE PHOSPHATASE 62 U/L (46-116); ASPARTATE AMINOTRANSFERASE 14 U/L (15-37); BILIRUBIN,TOTAL 1.5 mg/dL (0.2-1.0); CARBON DIOXIDE 25 mmol/L (21-32); CHLORIDE 106 mmol/L (98-107); CREATININE 1.1 mg/dL (0.6-1.3); GLUCOSE 96 mg/dL (74-106); POTASSIUM 4.4 mmol/L (3.5-5.1); SODIUM SERUM 140 mmol/L (136-145); TOTAL PROTEIN, SERUM 7.5 g/dL (6.4-8.2); UREA NITROGEN, BLOOD 27 mg/dL (7-18)
[2017-10-18 17:33] LABS: THYROID STIMULATING HORMONE 44.202 uIU/mL (0.358-3.74)
== END 2017-10-18 23:59 | disposition home or self-care (01) ==
LOC: LAB 15:33
PROVIDERS: ATTEND Internal Medicine Hematology & Oncology
DX: I82.409 Acute embolism and thrombosis of unspecified deep veins of unspecified lower extremity (principal); E03.9 Hypothyroidism, unspecified; I10 Essential (primary) hypertension
CPT/HCPCS: 36415; 80053-TC; 84439-TC; 84443-TC; 85025-TC; 85378-TC

== ENCOUNTER 2017-11-17 16:37 | Emergency (ER) | payer MEDICARE, BC ==
[~2017-11-17] VITALS: Ht 165.1 cm; Wt 78.9 kg
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
[2017-11-17] MEDS ORDERED: IV NS 0.9% 500 ML BAG IV ONE (17:00)
[2017-11-17 17:04] LABS: BASOPHILS % (AUTO) 0.3 % (0.0-2.0); HEMATOCRIT 37 % (33-45); HEMOGLOBIN 12.4 g/dL (11.5-14.8); LYMPHOCYTES # (AUTO) 0.9 /CMM (0.8-4.8); LYMPHOCYTES % (AUTO) 12.3 % (20.0-44.0); MEAN CORPUSCULAR HGB CONC 34 g/dl (31.0-36.0); MEAN CORPUSCULAR VOLUME 91 fL (82-100); MONOCYTES # (AUTO) 0.7 /CMM (0.1-1.30); MONOCYTES % (AUTO) 9.2 % (2.0-12.0); NEUTROPHILS # (AUTO) 5.3 /CMM (1.8-8.9); NEUTROPHILS % (AUTO) 75.2 % (43.0-81.0); PLATELET COUNT (AUTO) 215 /CMM (150-450); RDW COEFFICIENT OF VARIATION 15.4 (11.5-15.0); WHITE BLOOD COUNT (AUTO) 7.1 K/uL (4.3-11.0)
[2017-11-17 17:14] LABS: CALCIUM, SERUM 8.7 mg/dL (8.5-10.1); CARBON DIOXIDE 26 mmol/L (21-32); CHLORIDE 110 mmol/L (98-107); CREATININE 1.4 mg/dL (0.6-1.3); GLUCOSE 119 mg/dL (74-106); POTASSIUM 3.7 mmol/L (3.5-5.1); SODIUM SERUM 143 mmol/L (136-145); UREA NITROGEN, BLOOD 27 mg/dL (7-18)
[2017-11-17 17:18] LABS: INR 1.09 (0.85-1.15)
[2017-11-17] MEDS ORDERED: IOHEXOL-300 100 ML VIAL IV ONE (17:33)
[2017-11-17] MEDS ORDERED: IV NS 0.9% 250 ML IV ONE (17:33)
[2017-11-17] MEDS ORDERED: CT SWABBABLE VALVE TRANS SET 1 EA INFUS.SET MC ONE (17:34)
--- NOTE | 2017-11-17 19:28 | NUR ---
IV removed. Catheter intact and site benign. Pressure and 4x4 applied to site. No bleeding noted. Patient discharged to home in stable condition. Written and verbal after care instructions given. Patient verbalizes understanding of instruction. ambulatory with a steady gait noted. pt aaox4 no acute distress noted, resp even and unlabored.
[2017-11-17 19:29] VITALS: BP 137/75
== END 2017-11-17 19:30 | disposition home or self-care (01) ==
LOC: ER 16:38
DX: S30.1XXA Contusion of abdominal wall, initial encounter (principal); I10 Essential (primary) hypertension; D68.51 Activated protein C resistance; Z86.718 Personal history of other venous thrombosis and embolism; Z79.899 Other long term (current) drug therapy; V49.49XA Driver injured in collision with other motor vehicles in traffic accident, initial encounter; Y93.89 Activity, other specified; Y92.413 State road as the place of occurrence of the external cause; Y99.8 Other external cause status
CPT/HCPCS: 36415; 70450; 71260; 74177; 80048; 85025; 85730; 93005; 99285; A4606; J7040; J7050; Q9967; Z7610

== ENCOUNTER 2017-12-12 14:36 | Outpatient (CLI) | payer MEDICARE, BC ==
[2017-12-12 15:17] LABS: BASOPHILS % (AUTO) 0.2 % (0.0-2.0); EOSINOPHILS % (AUTO) 2.2 % (0.0-6.0); HEMATOCRIT 37 % (33-45); HEMOGLOBIN 11.9 g/dL (11.5-14.8); LYMPHOCYTES # (AUTO) 0.7 /CMM (0.8-4.8); LYMPHOCYTES % (AUTO) 10.1 % (20.0-44.0); MEAN CORPUSCULAR HGB CONC 32 g/dl (31.0-36.0); MEAN CORPUSCULAR VOLUME 93 fL (82-100); MONOCYTES # (AUTO) 0.6 /CMM (0.1-1.30); NEUTROPHILS # (AUTO) 5.6 /CMM (1.8-8.9); NEUTROPHILS % (AUTO) 79.5 % (43.0-81.0); PLATELET COUNT (AUTO) 209 /CMM (150-450); RED BLOOD CELL COUNT(AUTO) 3.97 MIL/uL (4.0-5.2); WHITE BLOOD COUNT (AUTO) 7.1 K/uL (4.3-11.0)
[2017-12-12 15:37] LABS: ALANINE AMINOTRANSFERASE 27 U/L (12-78); ALBUMIN 3.6 g/dL (3.4-5.0); ALKALINE PHOSPHATASE 81 U/L (46-116); ASPARTATE AMINOTRANSFERASE 16 U/L (15-37); CALCIUM, SERUM 9.1 mg/dL (8.5-10.1); CARBON DIOXIDE 23 mmol/L (21-32); CHLORIDE 107 mmol/L (98-107); CREATININE 1.1 mg/dL (0.6-1.3); GLUCOSE 88 mg/dL (74-106); POTASSIUM 3.9 mmol/L (3.5-5.1); SODIUM SERUM 142 mmol/L (136-145); TOTAL PROTEIN, SERUM 7.1 g/dL (6.4-8.2); UREA NITROGEN, BLOOD 18 mg/dL (7-18)
[2017-12-12 15:45] LABS: FREE T4 (FREE THYROXINE) 0.82 ng/dL (0.76-1.46); THYROID STIMULATING HORMONE 4.085 uIU/mL (0.358-3.74)
== END 2017-12-12 23:59 | disposition home or self-care (01) ==
LOC: LAB 14:36
PROVIDERS: ATTEND Internal Medicine Cardiovascular Disease
DX: E03.9 Hypothyroidism, unspecified (principal); I82.403 Acute embolism and thrombosis of unspecified deep veins of lower extremity, bilateral; I10 Essential (primary) hypertension
CPT/HCPCS: 36415; 80053-TC; 84439-TC; 84443-TC; 85025-TC; 85378-TC

== ENCOUNTER 2018-05-04 16:22 | Outpatient (CLI) | payer BC ==
[2018-05-04 17:05] LABS: BASOPHILS % (AUTO) 0.3 % (0.0-2.0); EOSINOPHILS % (AUTO) 2.3 % (0.0-6.0); HEMATOCRIT 36 % (33-45); HEMOGLOBIN 12.3 g/dL (11.5-14.8); LYMPHOCYTES # (AUTO) 0.7 /CMM (0.8-4.8); LYMPHOCYTES % (AUTO) 9.4 % (20.0-44.0); MEAN CORPUSCULAR HGB CONC 34 g/dl (31.0-36.0); MEAN CORPUSCULAR VOLUME 91 fL (82-100); MONOCYTES # (AUTO) 0.8 /CMM (0.1-1.30); MONOCYTES % (AUTO) 10.4 % (2.0-12.0); NEUTROPHILS # (AUTO) 5.9 /CMM (1.8-8.9); NEUTROPHILS % (AUTO) 77.6 % (43.0-81.0); PLATELET COUNT (AUTO) 192 /CMM (150-450); RED BLOOD CELL COUNT(AUTO) 3.98 MIL/uL (4.0-5.2); WHITE BLOOD COUNT (AUTO) 7.6 K/uL (4.3-11.0)
[2018-05-04 17:26] LABS: ALANINE AMINOTRANSFERASE 28 U/L (12-78); ALBUMIN 3.9 g/dL (3.4-5.0); ALKALINE PHOSPHATASE 77 U/L (46-116); ASPARTATE AMINOTRANSFERASE 23 U/L (15-37); BILIRUBIN,TOTAL 1.7 mg/dL (0.2-1.0); CALCIUM, SERUM 9.3 mg/dL (8.5-10.1); CARBON DIOXIDE 22 mmol/L (21-32); CHLORIDE 108 mmol/L (98-107); CREATININE 1.1 mg/dL (0.6-1.3); GLUCOSE 88 mg/dL (74-106); POTASSIUM 4.6 mmol/L (3.5-5.1); SODIUM SERUM 143 mmol/L (136-145); TOTAL PROTEIN, SERUM 7.4 g/dL (6.4-8.2); UREA NITROGEN, BLOOD 35 mg/dL (7-18)
[2018-05-04 17:35] LABS: THYROID STIMULATING HORMONE 1.906 uIU/mL (0.358-3.74)
== END 2018-05-04 23:59 | disposition home or self-care (01) ==
LOC: LAB 16:22
PROVIDERS: ATTEND Internal Medicine Cardiovascular Disease
DX: I10 Essential (primary) hypertension (principal); E11.9 Type 2 diabetes mellitus without complications; E78.5 Hyperlipidemia, unspecified; R53.83 Other fatigue
CPT/HCPCS: 36415; 80053-TC; 84443-TC; 85025-TC